=== PATIENT | male | born 1955 | race American Indian/Alaskan Native ===

== ENCOUNTER → 2024-09-30 | Outpatient (CLI) | payer MEDICARE, OTHER, SELFPAY ==
[2024-09-30 12:28] LABS: Prostate Specific Antigen 0.76 ng/mL (0-4.00)
== END | disposition home or self-care (01) ==
PROVIDERS: PCP Nurse Practitioner Family; Referring Provider Urology; Visit Provider Urology
DX: N40.1 Benign prostatic hyperplasia with lower urinary tract symptoms (principal)
CPT/HCPCS: 36415; 84153

== ENCOUNTER → 2024-10-28 | Outpatient (CLI) | payer MEDICARE, OTHER, SELFPAY ==
--- NOTE | 2024-10-28 13:40 | XR_ITS ---
Examination: Ultrasound soft tissue extremity right posterior neck TECHNIQUE: Multiple high resolution grayscale sonographic images soft tissue neck Exam date and time: October 28, 2024 1354 hours INDICATIONS: History lipoma removal in the right posterior lower neck one year ago, says interval lump same area of the neck note is beginning 4 months ago FINDINGS: Isoechoic hyperechoic mass at the area concern 2.6 x 0.9 x 1.8 cm IMPRESSION: Findings most consistent with soft tissue lipoma at the area of concern
--- NOTE | 2024-10-28 13:48 | XR_ITS ---
Examination: Bilateral hips, AP pelvis, 5 views Technique: AP, lateral views both hips, AP pelvis, 5 views Exam date and time: October 28, 2023 1405 hours INDICATIONS: Bilateral hip pain beginning 8 months ago FINDINGS: Mild osteopenia Mild to moderate narrowing right and left hip joints No right or left hip fracture or dislocation Bones of the pelvis intact IMPRESSION: Mild to moderate narrowing right and left hip joints
--- NOTE | 2024-10-28 13:48 | XR_ITS ---
Examination: Left knee 4 views TECHNIQUE: Standing AP oblique lateral axial left knee 4 views Exam date and time: October 28, 2024 1405 hours INDICATIONS: Left knee pain beginning 3 weeks ago. FINDINGS: Moderate tricompartment osteoarthritis No fracture or dislocation No ossified joint bodies IMPRESSION: Moderate tricompartment osteoarthritis, most severe medial joint space
== END | disposition home or self-care (01) ==
LOC: CDIM 13:18
PROVIDERS: PCP Nurse Practitioner Family; Referring Provider Nurse Practitioner Family; Visit Provider Nurse Practitioner Family
DX: M17.12 Unilateral primary osteoarthritis, left knee (principal); M25.852 Other specified joint disorders, left hip; R22.1 Localized swelling, mass and lump, neck; M25.851 Other specified joint disorders, right hip; Z86.018 Personal history of other benign neoplasm
CPT/HCPCS: 73523; 73564; 76536

== ENCOUNTER → 2024-11-01 | Outpatient (BNVA) | payer MEDICARE, OTHER, SELFPAY | END | disposition home or self-care (01) | PROVIDERS: PCP Physician Assistant; Referring Provider Physician Assistant; Visit Provider Urology | DX: N40.1 Benign prostatic hyperplasia with lower urinary tract symptoms (principal); N13.8 Other obstructive and reflux uropathy; C67.9 Malignant neoplasm of bladder, unspecified | CPT/HCPCS: 81003; 99212; G0463 ==

== ENCOUNTER → 2025-07-01 | Outpatient (BNVA) | payer MEDICARE, OTHER, SELFPAY | END | disposition home or self-care (01) | PROVIDERS: PCP Physician Assistant; Referring Provider Physician Assistant; Visit Provider Urology | DX: N40.1 Benign prostatic hyperplasia with lower urinary tract symptoms (principal); N13.8 Other obstructive and reflux uropathy; C67.9 Malignant neoplasm of bladder, unspecified | CPT/HCPCS: 81003; 99212; G0463 ==

== ENCOUNTER → 2025-08-09 | Outpatient (BNVA) | payer MEDICARE, OTHER, SELFPAY | END | disposition home or self-care (01) | PROVIDERS: PCP Physician Assistant; Referring Provider Physician Assistant; Visit Provider Urology | DX: N32.89 Other specified disorders of bladder (principal); N40.1 Benign prostatic hyperplasia with lower urinary tract symptoms; N13.8 Other obstructive and reflux uropathy; C67.9 Malignant neoplasm of bladder, unspecified | CPT/HCPCS: 52000; 81003; 96372; A4217; A4649; C1894; J1580; A9270 ==